=== PATIENT | female | born 1995 | race Caucasian/White ===

== ENCOUNTER 2024-06-28 16:59 | Emergency (ER) | payer OTHER ==
[2024-06-28 17:38] LABS: Bilirubin Negative (Negative); Blood, Urine Negative (Negative); Clarity Clear (Clear); Glucose, Urine (Dipstick) Negative (Negative); Ketone, Urine Negative (Negative); Leukocyte Negative (Negative); Nitrite Negative (Negative); Protein, Urine (Dipstick) Negative (Neg-Trace); Specific Gravity, Urine 1.015 (1.005-1.030); Urobilinogen 0.2 mg/dL (Less than 2)
[2024-06-28 17:46] LABS: CAUTI Indications for Culture Pregnancy; Squamous Epithelial 0-3 HPF (0-3); WBC/HPF 0-3 HPF (0-3)
[2024-06-28 17:47] LABS: Urine Culture Reflex Yes Yes
== END 2024-06-28 19:03 | disposition home or self-care (01) ==
LOC: NAV ERS 16:59
DX: O99.891 Other specified diseases and conditions complicating pregnancy (principal); R30.0 Dysuria; M54.9 Dorsalgia, unspecified; O13.1 Gestational [pregnancy-induced] hypertension without significant proteinuria, first trimester; Z3A.10 10 weeks gestation of pregnancy
CPT/HCPCS: 81001; 84702; 87086; 99283